=== PATIENT | male | born 1935 | race Hispanic/Latino ===

== ENCOUNTER 2016-08-17 07:21 | Emergency (ER) | payer MEDICARE, BC ==
[2016-08-17 07:21] VITALS: BMI 22.8
[2016-08-17 07:36] VITALS: TEMP 98.3
[2016-08-17] MEDS ORDERED: TDAP Vaccine 0.5 mL Syr IM ONE (07:55)
--- NOTE | 2016-08-17 08:07 | ED PDOC ---
HPI: General Adult Time Seen by Provider: 08/17/16 07:45 Chief Complaint (Nursing): Palpitations Chief Complaint (Provider): Palpitations History Per: Patient History/Exam Limitations: no limitations Onset/Duration Of Symptoms: Hrs (prior to arrival) Current Symptoms Are (Timing): Better Additional Complaint(s): Pt is a 80 y/o male with a past medical history of hypercholesterolemia and mild dementia (still lives on his own but family is on same block) presents to the emergency department via EMS after a fall and sustaining a laceration to the right elbow. Patient states he believes he tripped. Denies chest pain. Currently denies any palpitations. Patient states he is not dizzy. As per history from sister, patient has dementia and gets confused easily. Patient lives 2 doors down from his sister. Denies dizziness. Tetanus shot not up to date. PMD: None (Sister takes him) Past Medical History Reviewed: Historical Data, Nursing Documentation, Vital Signs Vital Signs: Last Vital Signs Temp 98.3 F 08/17/16 07:35 Pulse 90 08/17/16 10:00 Resp 20 08/17/16 10:00 BP 157/98 H 08/17/16 10:00 Pulse Ox 97 08/17/16 13:18 - Medical History PMH: Alzheimer's Disease (Possible), Anxiety (excessive anxiety, has seen a psychiatric provider for this in the past), Dementia (mild early), Hypercholesterolemia, Hyperlipidemia Denies: Chronic Kidney Disease - Family History Family History: States: Unknown Family Hx - Social History Current smoker - smoking cessation education provided: No Alcohol: None Drugs: Denies - Home Medications Home Medications: Ambulatory Orders Medication Instructions Recorded Atorvastatin [Lipitor] 20 mg PO HS #0 tab 09/05/15 Donepezil [Aricept] 10 mg PO DAILY 09/05/15 Ascorbic Acid [Vitamin C 500 mg 500 mg PO DAILY 08/17/16 Tab] Aspirin [Ecotrin] 81 mg PO Q48H 08/17/16 Ergocalciferol (Vitamin D2) 50,000 unit PO QWK 08/17/16 [Vitamin D2] Memantine HCl [Namenda Xr] 28 mg PO DAILY 08/17/16 Vitamin B Complex [Super B-50 1 cap PO DAILY 08/17/16 Complex] - Allergies Allergies/Adverse Reactions: Allergies Allergy/AdvReac Type Severity Reaction Status Date / Time No Known Allergies Allergy Verified 08/17/16 07:24 Review of Systems ROS Statement: Except As Marked, All Systems Reviewed And Found Negative Cardiovascular: Positive for: Palpitations Skin: Positive for: Other (abrasion to the right elbow) Neurological: Negative for: Dizziness Physical Exam - Reviewed Nursing Documentation Reviewed: Yes - Physical Exam Appears: Positive for: Well, No Acute Distress Head Exam: Positive for: ATRAUMATIC, NORMOCEPHALIC Skin: Positive for: Normal Color, Warm, Dry Eye Exam: Positive for: Normal appearance, EOMI, PERRL ENT: Positive for: Normal ENT Inspection Neck: Positive for: Normal, Trachea Midline. Negative for: Pain On Movement Of Neck Cardiovascular/Chest: Positive for: Regular Rate, Rhythm. Negative for: Murmur Respiratory: Positive for: Normal Breath Sounds. Negative for: Accessory Muscle Use, Respiratory Distress Gastrointestinal/Abdominal: Positive for: Normal Exam, Soft. Negative for: Tenderness Back: Positive for: Normal Inspection, R CVA Tenderness Extremity: Positive for: Normal ROM (Abrasion to the right elbow with normal range of motion; no bony tenderness to the elbow. ). Negative for: Tenderness Neurologic/Psych: Positive for: Alert, Oriented (Slightly confused but knows name and ; ) - Laboratory Results Result Diagrams: 08/17/16 08:14 08/17/16 08:14 - ECG O2 Sat by Pulse Oximetry: 97 (RA) Pulse Ox Interpretation: Normal Medical Decision Making Medical Decision Making: Time: 7:45 Initial impression: Fall Initial plan: --Check bloodwork --TDAP Vaccine 0.5 ml IM --Rug Dry Room Attendant CONT --IV Insertion --Urinalysis STAT --Revaluation 1:16 PM- Patient and family given option of admission for 24 hrs for hydration vs. d/c home and follow up at PMD office tomorrow. Initially they opted for admission; but now they want to go home. I discussed with Brent Devries NP ( covering [place]) and he agrees w/ this plan and states their office is open tomorrow. Family will watch pt closely today and bring pt to office tomorrow. Scribe Attestation: Documented by Alexia Hinson, acting as a scribe for Rk Paez MD. Provider Scribe Attestation: All medical record entries made by the Scribe were at my direction and personally dictated by me. I have reviewed the chart and agree that the record accurately reflects my personal performance of the history, physical exam, medical decision making, and the department course for this patient. I have also personally directed, reviewed, and agree with the discharge instructions and disposition. Disposition - Clinical Impression Clinical Impression: Fall, Dehydration, Elevated CPK, Dementia - Patient ED Disposition Is Patient to be Admitted: No - Disposition Referrals: Yoshi Farrell MD [Staff Provider] - Disposition: Routine/Home Disposition Time: 10:03 Condition: FAIR Additional Instructions: Mr. Deleon, thank you for letting us take care of you today. Return to the ER if your symptoms worsen, or if any problems. We offered you admission, but you are electing to go to your doctor tomorrow ( Saturday). Please follow up with your doctor tomorrow. Please stay well hydrated. Instructions: Dehydration (ED), Dementia (ED), Fall Prevention for Older Adults (ED) Forms: [employer] (British) Print Language: COLOMBIAN - POA Present On Arrival: Falls Or Trauma
[2016-08-17 08:17] LABS: BASO # 0.1 K/uL (0.0-0.2); BASO % 0.4 % (0.0-2.0); EOS % 0.2 % (0.0-4.0); HEMATOCRIT 41.5 % (35.0-51.0); LYMPH % 15.3 % (20.0-40.0); MEAN CELL VOLUME 97.8 fl (80.0-94.0); MEAN CORPUSCULAR HEMOGLOBIN 32.7 pg (27.0-31.0); MEAN CORPUSCULAR HGB CONC 33.4 g/dL (33.0-37.0); MEAN PLATELET VOLUME 8.1 fl (7.2-11.7); MONO % 7.3 % (0.0-10.0); NEUT # 10.2 K/uL (1.8-7.0); NEUT % 76.8 % (50.0-75.0); NRBC % 0.1 % (0.0-0.0); RED CELL DISTRIBUTION WIDTH 14.7 % (11.5-14.5); WHITE BLOOD COUNT 13.3 K/uL (4.8-10.8)
[2016-08-17 08:41] LABS: ALB/GLOB RATIO 1.4 (1.0-2.1); ALKALINE PHOSPHATASE 93 U/L (38-126); ALT/SGPT 38 U/L (21-72); AST/SGOT 59 U/L (17-59); BILIRUBIN,TOTAL 1.3 mg/dl (0.2-1.3); BLOOD UREA NITROGEN 44 mg/dl (9-20); CALCIUM 9.7 mg/dL (8.4-10.2); CARBON DIOXIDE 21 mmol/L (22-30); CHLORIDE 103 mmol/L (98-107); GFR AFRICAN-AMERICAN > 60; GLUCOSE,RANDOM 112 mg/dL (75-110); SODIUM 140 mmol/l (132-148); TOTAL PROTEIN 8.4 G/DL (6.3-8.2)
[2016-08-17 09:21] LABS: PARTIAL THROMBOPLASTIN TIME 23.8 SECONDS (23.3-32.5)
[2016-08-17] MEDS ORDERED: Sodium Chloride 0.9% 1,000 ML IV SCH (09:30)
[2016-08-17 10:01] VITALS: BP 157/98; PULSE 90; RESP 20
[2016-08-17 10:08] VITALS: O2SAT 97
[2016-08-17 11:39] LABS: RBC URINE 8 /hpf (0-3); URINE BILIRUBIN NEGATIVE (NEGATIVE); URINE BLOOD SMALL (NEGATIVE); URINE COLOR AMBER (YELLOW); URINE GLUCOSE (UA) NEG (Normal); URINE KETONE TRACE mg/dL (NEGATIVE); URINE LEUKOCYTE ESTERASE NEG Leu/uL (Negative); URINE PROTEIN 100 mg/dL (NEGATIVE)
--- NOTE | 2016-08-17 12:59 | RAD ---
HISTORY: Patient fell and with high WBC COMPARISON: Comparison made with prior study 06/29/2014. Ex FINDINGS: LUNGS: Poor inspiration with low lung volumes, minor crowded bronchovascular markings and bibasilar atelectasis PLEURA: No significant pleural effusion identified, no pneumothorax apparent. CARDIOVASCULAR: Normal. OSSEOUS STRUCTURES: No significant abnormalities. VISUALIZED UPPER ABDOMEN: Normal. OTHER FINDINGS: None. IMPRESSION: Poor inspiration with low lung volumes, minor crowded bronchovascular markings and bibasilar atelectasis
== END 2016-08-17 13:24 | disposition home or self-care (01) ==
LOC: H.ER 07:21 → H.ERHOLD 10:01 → UNDOADMIN 10:01
DX: R00.2 Palpitations (principal); S51.011A Laceration without foreign body of right elbow, initial encounter; W19.XXXA Unspecified fall, initial encounter; Y92.89 Other specified places as the place of occurrence of the external cause; E86.0 Dehydration; F02.80 Dementia in other diseases classified elsewhere, unspecified severity, without behavioral disturbance, psychotic disturbance, mood disturbance, and anxiety; R74.8 Abnormal levels of other serum enzymes; E78.01 Familial hypercholesterolemia; Z79.82 Long term (current) use of aspirin; G30.9 Alzheimer's disease, unspecified
CPT/HCPCS: 71010; 80053; 81003; 82550; 82553; 83880; 84484; 85025; 85610; 85730; 90471; 90715; 99285; J7040

== ENCOUNTER 2016-12-17 07:27 | Emergency (ER) | payer MEDICARE, BC ==
[2016-12-17 07:31] VITALS: BP 128/80; PULSE 112; TEMP 97; O2SAT 96
--- NOTE | 2016-12-17 08:12 | ED PDOC ---
Upper Extremity Pain/Injury Time Seen by Provider: 12/17/16 07:32 Chief Complaint (Nursing): Upper Extremity Problem/Injury Chief Complaint (Provider): Upper Extremity Problem/injury History Per: EMS (police) History/Exam Limitations: no limitations Onset/Duration Of Symptoms: Hrs (morning prior to arrival) Additional History Per: Patient Additional Complaint(s): Bayron Deleon is a 81 year old male with a past medical history of dementia brought to the ED by police for an evaluation of an incident occurring due to confusion this morning. The patient tripped and fell while wandering around campus at [place] earlier this morning and states he was confused. He was found by a [employer] police officer who witnessed the fall. He denies head injury or any other injury. PMD: Provider TBD Past Medical History Reviewed: Historical Data, Nursing Documentation, Vital Signs Vital Signs: Last Vital Signs Temp 97 F L 12/17/16 07:30 Pulse 112 H 12/17/16 07:30 Resp BP 128/80 12/17/16 07:30 Pulse Ox 96 12/17/16 07:30 - Medical History PMH: Alzheimer's Disease (Possible), Anxiety (excessive anxiety, has seen a psychiatric provider for this in the past), Dementia (mild early), Hypercholesterolemia, Hyperlipidemia Denies: Chronic Kidney Disease - Family History Family History: States: Unknown Family Hx - Social History Current smoker - smoking cessation education provided: No Ex-Smoker (has not smoked in the last 12 months): No Alcohol: None Drugs: Denies - Home Medications Home Medications: Ambulatory Orders Medication Instructions Recorded Atorvastatin [Lipitor] 20 mg PO HS #0 tab 09/05/15 Donepezil [Aricept] 10 mg PO DAILY 09/05/15 Ascorbic Acid [Vitamin C 500 mg 500 mg PO DAILY 08/17/16 Tab] Aspirin [Ecotrin] 81 mg PO Q48H 08/17/16 Ergocalciferol (Vitamin D2) 50,000 unit PO QWK 08/17/16 [Vitamin D2] Memantine HCl [Namenda Xr] 28 mg PO DAILY 08/17/16 Vitamin B Complex [Super B-50 1 cap PO DAILY 08/17/16 Complex] - Allergies Allergies/Adverse Reactions: Allergies Allergy/AdvReac Type Severity Reaction Status Date / Time No Known Allergies Allergy Verified 08/17/16 07:24 Review of Systems Musculoskeletal: Negative for: Other (no head injury) Physical Exam - Reviewed Nursing Documentation Reviewed: Yes Vital Signs Reviewed: Yes - Physical Exam Appears: Positive for: Non-toxic, No Acute Distress Head Exam: Positive for: ATRAUMATIC, NORMOCEPHALIC Neck: Positive for: Normal (nontendor) Extremity: Positive for: Normal ROM, Other (abrasion to palmar aspect of left hand). Negative for: Tenderness, Swelling Neurologic/Psych: Positive for: Alert, Oriented (x2), Mood/Affect (pleasant). Negative for: Motor/Sensory Deficits - ECG O2 Sat by Pulse Oximetry: 96 (RA) Pulse Ox Interpretation: Normal Medical Decision Making Medical Decision Making: Time: 07:32 Impression: Fall Plan: * Adacel 0.5 ml IM Once * Reevaluation Pt declines X-ray of left hand Scribe Attestation: Documented by Naheed Perez, acting as a scribe for Kip Dior MD. Provider Scribe Attestation: All medical record entries made by the Scribe were at my direction and personally dictated by me. I have reviewed the chart and agree that the record accurately reflects my personal performance of the history, physical exam, medical decision making, and the department course for this patient. I have also personally directed, reviewed, and agree with the discharge instructions and disposition. Disposition - Clinical Impression Clinical Impression: Abrasion - Patient ED Disposition Is Patient to be Admitted: No Counseled Patient/Family Regarding: Diagnosis, Need For Followup - Disposition Referrals: [facility] [Outside] Disposition: Routine/Home Disposition Time: 08:19 Condition: FAIR Instructions: Abrasion (ED) Forms: [employer] (Cambodian)
== END 2016-12-17 08:21 | disposition home or self-care (01) ==
LOC: H.ER 07:27
DX: S60.512A Abrasion of left hand, initial encounter (principal); W19.XXXA Unspecified fall, initial encounter; Y92.89 Other specified places as the place of occurrence of the external cause; F02.80 Dementia in other diseases classified elsewhere, unspecified severity, without behavioral disturbance, psychotic disturbance, mood disturbance, and anxiety; G30.9 Alzheimer's disease, unspecified; Z79.82 Long term (current) use of aspirin

== ENCOUNTER 2017-04-02 20:13 | Emergency (ER) | payer MEDICARE, BC ==
[2017-04-02 20:30] VITALS: RESP 18
[2017-04-02] MEDS ORDERED: Lidocaine 1% Inj (20ml) IJ STA (20:50)
--- NOTE | 2017-04-02 20:50 | ED PDOC ---
HPI: Wound Care - HPI Time Seen by Provider: 04/02/17 20:40 Chief Complaint (Nursing): Abnormal Skin Integrity Chief Complaint (Provider): Right finger laceration History Of Present Illness: 81 year old male with a history of dementia presents to the ED with an injury to his right hand. History is limited to patient clinical condition. Patient family is at bedside. The family states that the patient went out for a walk and they believed that while he was out he fell injuring his finger. The patient states he does not remember how he fell. Tetanus up to date. Denies use of blood thinners. Of note: Patient is currently taking aricept for dementia, lipitor and trazadone. PMD: Yoshi Bautista Past Medical History Reviewed: Historical Data, Nursing Documentation, Vital Signs Vital Signs: Last Vital Signs Temp 97.9 F 04/02/17 20:29 Pulse 94 H 04/02/17 20:29 Resp 18 04/02/17 20:29 BP 132/81 04/02/17 20:29 Pulse Ox 98 04/02/17 20:29 - Medical History PMH: Alzheimer's Disease (Possible), Anxiety (excessive anxiety, has seen a psychiatric provider for this in the past), Dementia (mild early), Hypercholesterolemia, Hyperlipidemia Denies: Chronic Kidney Disease - Family History Family History: States: Unknown Family Hx - Social History Current smoker - smoking cessation education provided: No Ex-Smoker (has not smoked in the last 12 months): No Alcohol: None Drugs: Denies - Home Medications Home Medications: Ambulatory Orders Medication Instructions Recorded Atorvastatin [Lipitor] 20 mg PO HS #0 tab 09/05/15 Donepezil [Aricept] 10 mg PO DAILY 09/05/15 Ascorbic Acid [Vitamin C 500 mg 500 mg PO DAILY 08/17/16 Tab] Aspirin [Ecotrin] 81 mg PO Q48H 08/17/16 Ergocalciferol (Vitamin D2) 50,000 unit PO QWK 08/17/16 [Vitamin D2] Memantine HCl [Namenda Xr] 28 mg PO DAILY 08/17/16 Vitamin B Complex [Super B-50 1 cap PO DAILY 08/17/16 Complex] Clindamycin [Cleocin] 300 mg PO TID #30 cap 04/02/17 - Allergies Allergies/Adverse Reactions: Allergies Allergy/AdvReac Type Severity Reaction Status Date / Time No Known Allergies Allergy Verified 08/17/16 07:24 Review of Systems Musculoskeletal: Positive for: Other (laceration to right hand) Physical Exam - Reviewed Nursing Documentation Reviewed: Yes Vital Signs Reviewed: Yes - Physical Exam Appears: Positive for: Non-toxic, No Acute Distress Head Exam: Positive for: NORMAL INSPECTION Skin: Positive for: Normal Color, Warm, Dry. Negative for: Rash Eye Exam: Positive for: Normal appearance, EOMI, PERRL. Negative for: Nystagmus Back: Positive for: Normal Inspection. Negative for: L CVA Tenderness, R CVA Tenderness Extremity: Positive for: Normal ROM (Irregular 2cm laceration noted to the plantar aspect of right hand 3rd and 4th digit; On the thirdr digit there is an open wound w/ tendon exposure; no obvious tendon injury noted; full ROM of DIP; mld active bleeding; able to move third digit w/o problems.), Other (1cm irregular laceration noted on the 4th digit; partial thickness; no active bleeding.). Negative for: Deformity, Swelling Neurologic/Psych: Positive for: Alert, Oriented, Gait. Negative for: Motor/ Sensory Deficits - ECG O2 Sat by Pulse Oximetry: 98 (RA) Pulse Ox Interpretation: Normal Procedure: Wound Repair - Time Performed Time Performed: 23:10 - Time Out Time Out: Side verified, Site verified, Patient ID confirmed, Sterile procedures obs. - Procedure Procedure: Wound Repair: right hand - Consent Obtained Consent obtained: Verbal - Performed by Performed by: Mid-level Provider - Indications Indication(s):: Laceration - Location Finger:: Right, Middle, Ring Shape:: Linear, Curvilinear, Other (irregular) - Irrigated Irrigated with ml of normal saline: see MDM - Complexity Complexity:: Complex(3 or 2 w/debrid.) Medical Decision Making Medical Decision Makin Initial Impression 81 year old male presenting with lacer to right 3rd and 4th digit Initial Plan: * Lidocain 1% (20ml) 10ml IJ * RAD rt hand 3 views * Reevaluation * * * lac repair: * complex laceration repair: 4th digit-2cm 7 sutures placed 5-0 nylon placed debridement required irrigated with 100c Of NS and betadine. * 3rd digit 2cm irregular laceration with tendon exposure no tendon injury subq fat noted and exposed. FROM of digit. nuervasc intact. 2 sutures placed subq layer 5-0 absorbable sutures placed. 1st layer closer 5-0 nylon simple interrupted placed #10 sutures placed. * volar splint applied. swelling noted to digits no fracuture noted on xray * telfa and bacatrcin applied. * ancef IV provided * pt will be d/c with cleocin and advised strongly to f.u with hand surgery. pt advised to very high probability of infection due to tendon exposure. Pt has dementia. Pt has good family support who will take care of wound to strongly advised to keep wound clean and no wet. * Documented by Rosalie Lemus acting as a scribe for Nicole Munson. All medical record entries made by the Scribe were at my direction and personally dictated by me. I have reviewed the chart and agree that the record accurately reflects my personal performance of the history, physical exam, medical decision making, and the department course for this patient. I have also personally directed, reviewed, and agree with the discharge instructions and disposition. Disposition - Clinical Impression Clinical Impression: Laceration - Patient ED Disposition Is Patient to be Admitted: No Counseled Patient/Family Regarding: Studies Performed, Diagnosis, Need For Followup, Rx Given - Disposition Referrals: Mathew Hodgson MD [Medical Doctor] - Tian Najera MD [Staff Provider] - Disposition: Routine/Home Disposition Time: 23:25 Condition: STABLE Additional Instructions: it is important to: 1. do not wet wound 2. do keep splint on 3. take your antibiotic 4. see a hand specialist as referred above. Prescriptions: Clindamycin [Cleocin] 300 mg PO TID #30 cap Instructions: Care For Your Stitches (ED), Laceration (ED), Finger Laceration ( ED) Forms: [employer] (Danish)
[2017-04-02] MEDS ORDERED: Povidone Iodine Topical 10% Sol ONE (21:01)
[2017-04-02] MEDS ORDERED: ceFAZolin IV 1 gm in Dextrose 1 GM/50 ML BAG IVPB STA (22:33)
[2017-04-02] MEDS ORDERED: ceFAZolin IV 1 gm in Dextrose 1 GM/50 ML BAG IVPB ONE (22:42)
[2017-04-02 23:53] VITALS: BP 140/81; PULSE 81; TEMP 98; O2SAT 100
--- NOTE | 2017-04-03 09:14 | RAD ---
PROCEDURE: Right Hand Radiographs. HISTORY: trauma attn fith digit COMPARISON: None. FINDINGS: BONES: Subcortical cystic changes 1st meta carpal base and distal proximal phalangeal aspects. No fracture. 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 SOFT TISSUES: There is volar mottled density/bandaging over the 3rd 4th and 5th digits. History of lacerated 5th digit. No cortical or osseous laceration appreciated OTHER FINDINGS: None. IMPRESSION: Volar digital soft tissue changes compatible with history and applied bandaging. No cortical laceration/interruption. 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
== END 2017-04-03 00:08 | disposition home or self-care (01) ==
LOC: H.ER 20:13
DX: S66.522A Laceration of intrinsic muscle, fascia and tendon of right middle finger at wrist and hand level, initial encounter (principal); S66.524A Laceration of intrinsic muscle, fascia and tendon of right ring finger at wrist and hand level, initial encounter; W19.XXXA Unspecified fall, initial encounter; F02.80 Dementia in other diseases classified elsewhere, unspecified severity, without behavioral disturbance, psychotic disturbance, mood disturbance, and anxiety; Z87.891 Personal history of nicotine dependence